=== PATIENT | female | born 1965 | race Caucasian/White ===

== ENCOUNTER 2025-01-12 08:15 | Outpatient (CLI) | payer OTHER, SELFPAY ==
--- NOTE | ~2025-01-12 | US_ITS ---
EXAMINATION: US pelvic complete w TV, 01/12/2025 8:19 CDT HISTORY: Pelvic pain Comparison: None Technique: Esposito-scale and color Doppler images were obtained. Findings: Uterus: Uterus anteverted 7 x 3.8 x 4.8 cm. . Endometrium 9 mm, no abnormal flow. Right Ovary:Right ovary not identified due to bowel gas. Left Ovary: Left ovary not identified due to bowel gas. Free Fluid: None Impression: The ovaries are not clearly visualized. Abnormal thickening of the endometrium, tissue sampling is suggested in this postmenopausal patient Reviewed, dictated and finalized at location A. Impression: The ovaries are not clearly visualized. Abnormal thickening of the endometrium, tissue sampling is suggested in this postmenopausal patient
== END 2025-01-12 08:16 | disposition home or self-care (01) ==
LOC: MICIMG 08:17
DX: R10.2 Pelvic and perineal pain (principal)
CPT/HCPCS: 76830; 76856

== ENCOUNTER 2025-02-14 00:29 | Day surgery (SDC) | payer OTHER, SELFPAY ==
[2025-02-07 15:07] VITALS: BMI 19.4
--- NOTE | 2025-02-07 15:29 | PC.NURSE ---
[facility] has started construction of its new state of the art ER which will open Spring 2026. With this, we anticipate parking may be a challenge for some our surgical patients and families. Parking spaces are limited but are available for all Surgical, obstetrics, and ER patients sharing this lot. If you arrive and find you are having a hard time finding a parking space, please note that we understand the challenges, please drive around the hospital and park near Hospital Entrance 1. When you enter this entrance, you can ask a volunteer to direct or take you back to the surgical waiting area to check in. We appreciate everyone?s understanding of these expected challenges while we build for your future. Report to the Outpatient Waiting Room, entrance under the green pavilion located off [address], at time _0915_on date __02/14/25___. Planned Procedure Time: _1115___.? Time changes happen often and if your time is changed the preop area will call you the afternoon before. - You and your visitor will be asked to self-screen and do not enter if you have any COVID symptoms. Please call surgeon if you need to reschedule. - A mask is optional within the hospital at this time. Patients may have clear liquids (water, carbonated beverages, clear teas, apple juice) until 3 hours prior to surgery with a maximum of 20 ounces. - No food from midnight until time of surgery and no smoking, or chewing tobacco (or any form of nicotine). No chewing gum, candy or mints. Take only the following medications with a SIP of water on the morning of surgery: __NONE DO NOT STOP ANY OF YOUR OTHER PRESCRIPTION MEDICATIONS PRIOR TO SURGERY EXCEPT THE FOLLOWING Hold all vitamins and supplements for 3 days per anesthesiologist. Medications to discontinue per physician Date to take last dose Please no make-up, nail south korean, hairspray, perfume, deodorant, or body powder the day of surgery.? No jewelry (including any body piercings) or valuables the day of surgery, leave them at home.? Please take a shower or bath the night before, or the morning of, surgery with an antibacterial soap.? Wear comfortable, loose fitting clothing.? - Jewelry must be removed prior to entering the operating room.? Rings and piercings that are not removed may be cut off. - The hospital will not accept responsibility for valuables.? - Please leave all valuables, including medications, at home the day of surgery. If you are going home after surgery, a licensed driver engineer must drive you home.? - NO public transportation without another adult if you receive anesthesia. - We recommend that an adult stay with you for 24 hours following discharge. - We also recommend that you do not drive, make important decision, drink alcoholic beverages, or take any drugs that were not prescribed by your health care provider for at least 24 hours after your discharge time. Follow any additional instructions given to you from your surgeon. Telephone instructions given to _YANI__and asked if any additional questions and then verbalized understanding. Patient advised to call surgeon office or pre surgery nurse liaison [phone] if any additional questions.
--- NOTE | 2025-02-14 07:29 | WPDHPUPDATE1 ---
History and Physical Update Update Date/Time: 02/14/25 07:29 History and Physical has been reviewed, including an updated exam of the patient. There are NO changes in the patient's condition. Risks, benefits, and alternatives have been discussed and questions answered. Patient agrees to proceed with procedure.
--- NOTE | 2025-02-14 07:29 | PM.HPGS ---
History of Present Illness History of Present Illness Consent: Risks, benefits, and alternatives have been discussed and questions answered. Patient agrees to proceed with procedure. Chief complaint: thickened endomtrium lining Narrative: Hope William is a 59 year old female with thickened endometrium at 9mm. The patient denies vaginal bleeding. Options were discussed with the patient and we plan to proceed with D&C hysteroscopy. Risks of infection, bleeding, perforation, and possible pathology are reviewed. Patient voices understanding and agrees to proceed. Review of Systems Review of Systems: not repeated day of surgery; patient states no changes in status [facility] Past Medical History Medical History (Updated 02/14/25 @ 07:32 by Dee Penn MD) (normal spontaneous vaginal delivery) X3 Social History Social History Smoking status: Never smoker Alcohol intake: never Substance use: never Substance use type: does not use Living arrangements: with family Spiritual care concerns: No Meds Home Medications and Allergies Home Medications ?Medication ?Instructions ?Recorded ?Confirmed ?Type No Home Medications 02/07/25 02/07/25 History Allergies Allergy/AdvReac Type Severity Reaction Status Date / Time No Known Allergies Allergy Verified 02/07/25 15:23 Exam Const: General: healthy appearing and alert Orientation/consciousness: patient oriented x3 Resp: Effort & Inspection: normal respiratory effort Auscultation: clear to auscultation bilaterally Cardio: Rate: regular rate Rhythm: regular rhythm GI: GI Palp: Yes Soft to palpation, No Tenderness to palpation present (GI) and No Palpable mass present : External Female Exam: normal external appearance Speculum Exam - Vagina: vagina atrophic Speculum Exam - Cervix: normal appearance of the cervix Bimanual exam- vagina & uterus: uterine size normal and consistency normal Bimanual Exam- Adnexa, other: normal adnexae and No adnexal tenderness Neuro: General: patient oriented x3 Assessment and Plan Assessment and plan (1) Thickened endometrium: Code(s): R93.89 - Abnormal findings on diagnostic imaging of other specified body structures Status: Acute Assessment and Plan: Plan to proceed with D&C hysteroscopy
--- NOTE | 2025-02-14 08:16 | P.PNAN_ITS ---
Anes - Initial Pre Proc Eval Procedure: Operation Date: 02/14/25 10:45 Proposed Procedures p Hysteroscopy, Dilation and Curettage - Dee Penn MD Date/Time: 02/14/25 08:16 Surgeon: Dee Penn MD Pre Op Diagnosis: thickened endomtrium lining Patient Data Age: 59 Gender: F Height: 1.63 m Weight: 51.3 kg Allergies Allergy/AdvReac Type Severity Reaction Status Date / Time No Known Allergies Allergy Verified 02/07/25 15:23 Home Medications ?Medication ?Instructions ?Recorded ?Confirmed ?Type No Home Medications 02/07/25 02/07/25 H istory Results Review: All pre-operative results and documents have been reviewed as part of the pre- operative evaluation. PMFSH Past Medical History Medical History (normal spontaneous vaginal delivery) X3 Social History Social History Smoking status: Never smoker Alcohol intake: never Substance use: never Substance use type: does not use Living arrangements: with family Spiritual care concerns: No Anes - Eval Final PreProcedure Day of Procedure 02/14/25 08:16 Patient weight: normal ASA classification: I Emergent: no Anesthetic plan: proceed Anesthesia type and monitoring: general GIVS and standard monitoring Results Review: All pre-operative results and documents have been reviewed as part of the pre- operative evaluation. Informed Consent: The patient's anesthetic plan and its attendant risks and benefits were discussed with the patient/family/POA. Questions were solicited and answers provided to the satisfaction of the patient/family/POA.
[2025-02-14 09:00] VITALS: BP 114/66; PULSE 62; RESP 16; TEMP 36.5; O2SAT 100; BMI 19.3
--- NOTE | 2025-02-14 09:14 | P.PNAN_ITS ---
Anes - Initial Pre Proc Eval Procedure: Operation Date: 02/14/25 10:45 Proposed Procedures p Hysteroscopy, Dilation and Curettage - Dee Penn MD Date/Time: 02/14/25 09:14 Surgeon: Dee Penn MD Pre Op Diagnosis: thickened endomtrium lining Patient Data Age: 59 Gender: F Height: 1.63 m Weight: 51.3 kg Allergies Allergy/AdvReac Type Severity Reaction Status Date / Time No Known Allergies Allergy Verified 02/07/25 15:23 Home Medications ?Medication ?Instructions ?Recorded ?Confirmed ?Type No Home Medications 02/07/25 02/07/25 H istory Patient hx anesthesia problems: none Family hx anesthesia problems: none Results Review: All pre-operative results and documents have been reviewed as part of the pre- operative evaluation. PMFSH Past Medical History Medical History (normal spontaneous vaginal delivery) X3 Social History Social History Smoking status: Never smoker Alcohol intake: never Substance use: never Substance use type: does not use Living arrangements: with family Spiritual care concerns: No Anes - Eval Final PreProcedure Day of Procedure 02/14/25 09:14 Patient weight: thin Heart: regular rate and rhythm Lungs: clear to auscultation Airway: Mallampati scale class 1 Neurological: alert and oriented Last oral intake: >/= 8 hours ASA classification: I Emergent: no Anesthetic plan: proceed Anesthesia type and monitoring: general GIVS and standard monitoring Results Review: All pre-operative results and documents have been reviewed as part of the pre- operative evaluation. Informed Consent: The patient's anesthetic plan and its attendant risks and benefits were discussed with the patient/family/POA. Questions were solicited and answers provided to the satisfaction of the patient/family/POA.
[2025-02-14] MEDS: LACTATED RINGERS 1,000 ML 30 ML IV CONT (09:25)
[2025-02-14] MEDS: ACETAMINOPHEN 500 MG TABLET 1000 MG PO (09:27)
--- NOTE | 2025-02-14 12:35 | S_PTH ---
PATIENT: Hope William [facility] U#:[id number] AGE/SX: 59/F ROOM: RE02/14/[address]: Dee Penn MD : 1965 BED: DIS: 02/14/2025 SPEC #: [id number] RECD: 02/14/25 14:10 STATUS: ISHAAN REQ #: [id number] KATELIN: 02/14/25 12:[address]: Dee Penn DEPT: [facility] Surgical RECD BY: Floresita Vincent ENTERED: 02/14/25 14:11 SP TYPE: Surgical OTHR DR: Josselin Farr, SEROLOGY TEACHER Tissues: A - Endometrial Curettings Procedures: Hematoxylin and Eosin Stain Gross and Microscopic Level 4
--- NOTE | 2025-02-14 12:49 | P.OP_ITS ---
Procedure Note - Detailed Date of Procedure 02/14/25 Pre-op Diagnosis thickened endomtrium lining Post-op Diagnosis Same Procedure Performed D&C hysteroscopy with polypectomy Surgeon Dee Penn MD Anesthesia MAC Findings Cervix has severe stenosis. Endometrium is atrophic and sounds to 11cm. There is a polyp arising from the right sidewall. Description of Procedure The patient was taken to the operating room and placed under anesthesia in the dorsal lithotomy position. She was prepped and draped in usual sterile fashion. Winger speculum was placed in the vagina and the cervix grasped on the anterior lip with a tenaculum. The uterus was attempted to be sounded and it does not pass half a cm. The os finders are used and the bent. The small dilators were used and would not pass. The 11 blade scalpel was used to casa- cross the visible os, the os finders are then reused and still did not pass. They continued to bend. The small dilators are used and again did not pass. The 11 blade is used again and the incision extended slightly and the blade taken to its full depth. The os finders are again reused and still did not pass. The small Hegar dilators were used and I got to approximate 2.5cm. The 11 blade was again used at this gap and again the blade was taken to its full depth at this location. The os finders are again used and not successful. The small Hegar dilator is used and with excess pressure there was a pop and it passed the internal os. The cervix was dilated to a 5 Hegar with difficulty. The uterus is sounded to 11cm. The diagnostic hysteroscope was placed and the above-stated findings are noted. The small Aveta resection device is placed and under direct visualization the polyp was removed in its entirety. The hysteroscope was removed and the small curette is placed with minimal material obtained from curettage consistent with the atrophic appearance. All instruments were then removed. Sponge, needle, and instrument counts are correct per the OR staff. The patient was taken to recovery in stable condition. Estimated Blood Loss 5 Drains No Packing No Pathology Yes (Endometrial shavings and curettings) Complications No immediate complications Condition Stable Disposition PACU
[2025-02-14 12:51] VITALS: BP 110/50; PULSE 48; RESP 20
[2025-02-14 13:15] VITALS: BP 112/70; PULSE 52; RESP 20
[2025-02-14 13:45] VITALS: BP 112/56; PULSE 45; RESP 20
== END 2025-02-14 14:00 | disposition home or self-care (01) ==
PROVIDERS: Visit Provider Obstetrics & Gynecology Gynecology
PROC: 0U5B8ZZ Destruction of Endometrium, Via Natural or Artificial Opening Endoscopic (ICD-10-PCS; CPT 58563; principal; 2025-02-14 10:45)
DX: R93.89 Abnormal findings on diagnostic imaging of other specified body structures (principal); N84.0 Polyp of corpus uteri; N88.2 Stricture and stenosis of cervix uteri
CPT/HCPCS: 58558; 88305; A9270; J2003; J2250; J2704; J3010; J7120